=== PATIENT | male | born 1960 | race Caucasian/White ===

== ENCOUNTER 2018-10-26 02:32 | Outpatient (CLI) | payer MEDICAID, SELFPAY ==
--- NOTE | 2018-10-26 10:20 | PFT_ITS ---
PULMONARY FUNCTION TEST REPORT DATE OF SERVICE: October 26, 2018 REQUESTING PROVIDER: Sascha Coulter M.D. Spirometry shows no evidence of obstructive airways disease. No bronchodilator testing was carried out. Lung volumes show no evidence of restriction. Diffusion capacity mildly reduced, even when corrected to alveolar volume. Airways resistance normal. IMPRESSION: Isolated mild diffusion defect. This can be seen in early developing interstitial lung disease versus pulmonary hypertension versus neuromuscular dysfunction. Therefore, clinical correlation is recommended. KENNY/darrell D/
== END 2018-10-26 02:52 ==
PROVIDERS: PCP Family Medicine; Visit Provider Student in an Organized Health Care Education/Training Program
DX: R06.09 Other forms of dyspnea (principal)
CPT/HCPCS: 94060; 94150; 94726; 94729; 93225

== ENCOUNTER 2018-10-26 11:19 | Outpatient (REF) | payer MEDICAID, SELFPAY ==
[2018-10-26 13:32] LABS: HGB 12.4 g/dL (13.5-17.5); Mean Corp. HGB Concentration 33.5 g/dL (32.0-36.0); Mean Corpuscular Hemoglobin 31.9 pg (27.0-33.0); Mean Corpuscular Volume 95.1 fL (80-95); Mean Platelet Volume 10.3 fL (8.0-11.0); RBC 3.89 m/cumm (4.50-6.00); RBC Distribution Width 13.3 % (11.8-14.1); White Blood Cell Count 3.77 k/cumm (4.4-10.8)
[2018-10-26 13:44] LABS: Platelet Count 67 x1000/uL (130-400)
[2018-10-26 14:24] LABS: ALT 24 U/L (12-78); AST 32 U/L (15-37); Albumin 2.8 g/dL (3.4-5.0); Alkaline Phosphatase 133 U/L (46-116); BUN 12 mg/dL (7-18); Bilirubin, Total 0.9 mg/dL (0.2-1.0); CREATININE 1.16 mg/dL (0.70-1.30); Calcium 8.3 mg/dL (8.5-10.1); Chloride 107 mmol/L (98-107); Ferritin 130 ng/mL (8-388); Glucose 101 mg/dL (70-100); Potassium 4.3 mmol/L (3.5-5.1); Sodium 141 mmol/L (136-145); Total Protein 6.9 g/dL (6.4-8.2)
[2018-10-26 15:09] LABS: Iron 79 ug/dL (50-175); Total Iron Binding Capacity 248 ug/dL (250-450); Transferrin Sat 32 % (20-55)
[2018-11-12 17:06] LABS: HCV RNA Detection Quantitative Undetected IU/mL (UNDECT)
== END 2018-10-26 11:39 ==
LOC: NCHCN 11:19
PROVIDERS: PCP Family Medicine; Visit Provider Nurse Practitioner Family
DX: B19.20 Unspecified viral hepatitis C without hepatic coma (principal); I10 Essential (primary) hypertension; R42 Dizziness and giddiness
CPT/HCPCS: 80053; 85027; 86803; 82728; 83540; 83550; 87522

== ENCOUNTER 2018-12-31 01:06 | Outpatient (CLI) | payer MEDICAID, SELFPAY ==
--- NOTE | 2018-12-31 06:51 | DI.US_ITS ---
SYMPTOM/DIAGNOSIS: COMPENSATED CIRRHOSIS WITH PORTAL HYPERTENSION, SCREENING FOR HEPATOMA AND PRESENCE OF ASCITES ABDOMEN ULTRASOUND: Comparison is made with 02/19/18. The aorta is of normal caliber. The IVC is unremarkable. The liver measures 13.5 cm. long. It is slightly coarse in echotexture. There is a slight area of decreased echogenicity in the right lobe measuring 1.1 by 1.5 by 1.1 cm. No internal blood flow is seen. No other hepatic lesions are seen. The portal vein is hepatopetal in flow. There are multiple mobile stones seen within the gallbladder. No gallbladder wall thickening or pericholecystic fluid is seen. The common duct measures .7 cm. No evidence of choledocholithiasis is seen. The pancreatic tail is not well seen but the remainder of the pancreas is unremarkable. The spleen is enlarged measuring 14.6 cm. The kidneys are unremarkable. No free fluid is seen in the abdomen. IMPRESSION: 1. 1.1 cm. hypoechoic area in the right lobe of the liver. Further evaluation with CT and/or MRI should be considered. 2. Splenomegaly. 3. No abdominal ascites. 4. Cholelithiasis.
== END 2018-12-31 01:26 ==
PROVIDERS: PCP Family Medicine; Visit Provider Internal Medicine Gastroenterology
DX: K74.60 Unspecified cirrhosis of liver (principal); K76.6 Portal hypertension; K76.89 Other specified diseases of liver; K80.20 Calculus of gallbladder without cholecystitis without obstruction; R16.1 Splenomegaly, not elsewhere classified
CPT/HCPCS: 76700

== ENCOUNTER 2019-02-26 11:41 | Outpatient (REF) | payer MEDICAID, SELFPAY ==
[2019-02-26 19:24] LABS: Abs Immature Grans 0.01 k/cumm (0.0-0.09); Absolute Basophil Count 0.02 k/cumm (0.0-0.2); Absolute Eosinophil Count 0.28 k/cumm (0.0-0.7); Absolute Lymphocyte Count 1.63 k/cumm (1.2-3.4); Absolute Monocyte Count 0.49 k/cumm (0.11-0.7); Basophils % 0.4; Eosinophils % 5.8; HCT 34.5 % (40.0-50.0); Immature Grans % 0.2; Lymphocytes % 33.7; Mean Corp. HGB Concentration 34.8 g/dL (32.0-36.0); Mean Corpuscular Hemoglobin 32.9 pg (27.0-33.0); Mean Corpuscular Volume 94.5 fL (80-95); Mean Platelet Volume 10.3 fL (8.0-11.0); Monocytes % 10.1; Neutrophils % 49.8; RBC 3.65 m/cumm (4.50-6.00); RBC Distribution Width 13.8 % (11.8-14.1); White Blood Cell Count 4.83 k/cumm (4.4-10.8)
[2019-02-26 19:25] LABS: INR 1.2 (0.9-1.1); Prothrombin Time 11.7 sec (9.3-11.0)
[2019-02-26 19:44] LABS: ALT 24 U/L (12-78); AST 39 U/L (15-37); Alkaline Phosphatase 119 U/L (46-116); Anion Gap 7.9 mmol/L (3-11); BUN 16 mg/dL (7-18); Bilirubin, Total 1.2 mg/dL (0.2-1.0); CO2 25.1 mmol/L (21.0-32.0); CREATININE 0.96 mg/dL (0.70-1.30); Calcium 8.5 mg/dL (8.5-10.1); Chloride 107 mmol/L (98-107); Glucose 120 mg/dL (70-100); Potassium 3.9 mmol/L (3.5-5.1); Sodium 140 mmol/L (136-145)
[2019-02-26 20:24] LABS: Platelet Count 70 x1000/uL (130-400)
[2019-02-26 20:25] LABS: Diff Comment PLT Morph Reviewed; RBC Morphology Normal
[2019-03-01 10:31] LABS: AFP Tumor Marker 11.6 ng/mL (<8.1)
== END 2019-02-26 12:01 ==
LOC: NCHCN 11:41
PROVIDERS: PCP Family Medicine; Visit Provider Nurse Practitioner Family
DX: B19.20 Unspecified viral hepatitis C without hepatic coma (principal)
CPT/HCPCS: 80053; 82105; 85025; 85610